=== PATIENT | male | born 1955 | race Caucasian/White ===

== ENCOUNTER → 2024-11-10 11:21 | Outpatient (REF) | payer MEDICARE, BC, SELFPAY | LOC: MRI 3T 11:21 | PROVIDERS: ATTENDING PHYSICIAN Physician Assistant | DX: M25.562 Pain in left knee (principal) | CPT/HCPCS: 73721 ==

== ENCOUNTER → 2024-11-14 15:54 | Outpatient (REF) | payer MEDICARE, BC, SELFPAY | LOC: REG 15:54 | PROVIDERS: ATTENDING PHYSICIAN Physician Assistant Surgical | DX: Z01.818 Encounter for other preprocedural examination (principal) | CPT/HCPCS: 36415; 87070 ==

== ENCOUNTER 2024-11-25 06:36 | Day surgery (SDC) | payer MEDICARE, BC, SELFPAY ==
--- NOTE | 2024-11-12 10:32 | VNURNOTE ---
Patient is scheduled for an elective L TKA on 11/25/24- he is a same day patient with Dr Reyez. Spoke with patient prior to surgery. Introduced role of [facility] Liaison. Patient reports that he lives with his in a M[place]I story home in [place].
He will be staying at his son's house post-op: [id number] [place] [id number]
There are 2 steps to enter and a flight of steps to the second floor.
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 He currently functions independently. He has a rolling walker.
PCP is Luana Graham
Discussed [facility] joint protocol and post surgical plans.
Reviewed that he will have VN services initially and will then start outpatient PT.
Patient selects [facility] for his home care needs and will go to 'the outpt PT center at [address]' for outpatient PT. Scheduled for 11/28.
Patient is in agreement with plan and states that his will be home with him. Advised to bring RW with him day of surgery. Referral placed in [facility].
Plan: [facility] per [facility] joint protocol on 11/25 then outpt PT on 11/28
[2024-11-25] VITALS (21 sets, daily range): BP systolic 76–141; BP diastolic 57–92; PULSE 68; O2SAT 90; BMI 32.1
[2024-11-25] MEDS: CELEBREX 200 MG PO (09:37)
[2024-11-25] MEDS: TYLENOL 650 MG PO (09:37)
[2024-11-25] MEDS: NORMOSOL-R/PLASMALYTE-A 1000 IV (09:37)
--- NOTE | 2024-11-25 12:05 | W.DS.TRANS ---
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
-
Discharge Instructions:
Discharge Diagnosis/Procedures L TKA 11/25/24
Diet As tolerated
Activity With Walker
Driving Restrictions No driving
Bathing Restrictions OK to Shower
Other Services PT
Instructions:
Stand-Alone Forms: SDS Total Hip and Knee D/C
Changes to Home Medications: Yes
Discharge Medications:
DC Medications w/original date entered in [facility]
pantoprazole 40 mg tablet,delayed release 40 mg PO DAILY 08/20/15
mupirocin 2 % topical ointment 1 applic topical BID 11/19/24
tamsulosin 0.4 mg capsule (Flomax) 0.4 mg PO HS 11/19/24
Saccharomyces boulardii 250 mg capsule (Florastor) 250 mg PO BID #1 cap 11/25/24
acetaminophen 325 mg tablet (Tylenol) 650 mg (2 x 325 mg) PO QID #1 tab 11/25/24
aspirin 325 mg tablet 325 mg PO DAILY blood clot prevention #1 tab 11/25/24
cefadroxil 500 mg capsule 500 mg PO BID infection prevention #14 caps 11/25/24
celecoxib 100 mg capsule 100 mg PO BID Anti-inflammatory #14 caps 11/25/24
dexamethasone 4 mg tablet 4 mg PO BID inflammation #6 tabs 11/25/24
docusate sodium 100 mg capsule (Colace) 100 mg PO BID stool softner #1 cap 11/25/24
magnesium hydroxide 400 mg/5 mL oral suspension (Milk of Magnesia) 30 ml PO HS PRN Constipation #1 mL 11/25/24
ondansetron 4 mg disintegrating tablet 4 mg PO Q6H PRN n/v #20 tabs 11/25/24
oxycodone 5 mg tablet 5 mg PO Q6H PRN 1 tab moderate pain, 2 tabs severe pain #30 tabs 11/25/24
sennosides 8.6 mg tablet (Senokot) 17.2 mg (2 x 8.6 mg) PO BID laxative #2 tabs 11/25/24
Home Medication Changes
Saccharomyces boulardii 250 mg capsule (Florastor) 250 mg PO BID #1 cap 11/25/24
acetaminophen 325 mg tablet (Tylenol) 650 mg (2 x 325 mg) PO QID #1 tab 11/25/24
aspirin 325 mg tablet 325 mg PO DAILY blood clot prevention #1 tab 11/25/24
cefadroxil 500 mg capsule 500 mg PO BID infection prevention #14 caps 11/25/24
celecoxib 100 mg capsule 100 mg PO BID Anti-inflammatory #14 caps 11/25/24
dexamethasone 4 mg tablet 4 mg PO BID inflammation #6 tabs 11/25/24
docusate sodium 100 mg capsule (Colace) 100 mg PO BID stool softner #1 cap 11/25/24
magnesium hydroxide 400 mg/5 mL oral suspension (Milk of Magnesia) 30 ml PO HS PRN Constipation #1 mL 11/25/24
ondansetron 4 mg disintegrating tablet 4 mg PO Q6H PRN n/v #20 tabs 11/25/24
oxycodone 5 mg tablet 5 mg PO Q6H PRN 1 tab moderate pain, 2 tabs severe pain #30 tabs 11/25/24
sennosides 8.6 mg tablet (Senokot) 17.2 mg (2 x 8.6 mg) PO BID laxative #2 tabs 11/25/24
Pending Results: No
[2024-11-25] MEDS: DILAUDID 0.5 MG IV ×3 (13:48→14:19)
[2024-11-25] MEDS: ROXICODONE 5 MG PO ×2 (15:18→16:22)
[2024-11-25] MEDS: ANCEF 5 IV (15:55)
== END 2024-11-25 16:40 | disposition home or self-care (01) ==
LOC: SDS 06:36
PROVIDERS: ATTENDING PHYSICIAN Specialist
DX: M17.12 Unilateral primary osteoarthritis, left knee (principal); E66.9 Obesity, unspecified; Z68.33 Body mass index [BMI] 33.0-33.9, adult; C43.9 Malignant melanoma of skin, unspecified; M48.00 Spinal stenosis, site unspecified
CPT/HCPCS: 27447; 73560; 97116; 97162; C1713; C1776